=== PATIENT | female | born 1965 | race American Indian/Alaskan Native ===

== ENCOUNTER 2017-05-27 20:08 | Observation (INO) | payer BC ==
[2017-05-27 22:06] LABS: ALB/GLOB RATIO 1.4 (1.1-1.8); ALBUMIN 4.1 g/dL (3.0-4.8); ALT/SGPT 34 U/L (7-56); AST/SGOT 27 U/L (14-36); BLOOD UREA NITROGEN 12 mg/dL (7-21); CALCIUM 9.5 mg/dL (8.4-10.5); GFR AFRICAN-AMERICAN > 60; GFR NON-AFRICAN AMERICAN > 60
[2017-05-27 22:09] LABS: HEMOGLOBIN 12.9 g/dL (12.0-16.0); MEAN CELL VOLUME 85.7 fl (80.0-105.0); MEAN CORPUSCULAR HEMOGLOBIN 29.3 pg (25.0-35.0); MEAN CORPUSCULAR HGB CONC 34.1 g/dl (31.0-37.0); MEAN PLATELET VOLUME 10.1 fl (7.0-11.0); RBC 4.41 10^6/uL (3.5-6.1); RED CELL DISTRIBUTION WIDTH 13.3 % (11.5-14.5); WHITE BLOOD COUNT 5.9 10^3/ul (4.5-11.0)
[2017-05-27 22:18] LABS: B-TYPE NATRIURETIC PEPTIDE 70.6 pg/mL (0-450); TROPONIN I < 0.01 ng/mL
[2017-05-27 22:25] LABS: INR 1.14 (0.93-1.08); PARTIAL THROMBOPLASTIN TIME 30.2 Seconds (25.1-36.5)
--- NOTE | 2017-05-27 22:27 | ED PDOC ---
Arrival/HPI - General Chief Complaint: High Blood Pressure Time Seen by Provider: 05/27/17 20:35 Historian: Patient - History of Present Illness Narrative History of Present Illness (Text): 05/27/17 21:05 Kaylene James is a 51 year old female, whose past medical history includes hypertension and diabetes, who presents to the emergency department complaining of headache discomfort tonight. Patient also reports chest discomfort with some occasional vague shortness of breath, and intermittent ankle swelling. Patient denies any fever, chills, back pain, nausea, vomiting, or any other complaints. Symptom Onset: Gradual Symptom Course: Unchanged Activities at Onset: Light Context: Home Past Medical History - Provider Review Nursing Documentation Reviewed: Yes - Infectious Disease Hx of Infectious Diseases: None - Cardiac Hx Cardiac Disorders: No Hx Hypertension: Yes - Pulmonary Hx Respiratory Disorders: No - Neurological Hx Neurological Disorder: No - HEENT Hx HEENT Disorder: No - Renal Hx Renal Disorder: No - Endocrine/Metabolic Hx Endocrine Disorders: Yes Hx Diabetes Mellitus Type 2: Yes ("pre-diabetes) - Hematological/Oncological Hx Blood Disorders: No - Integumentary Hx Dermatological Disorder: No - Musculoskeletal/Rheumatological Hx Musculoskeletal Disorders: No - Gastrointestinal Hx Gastrointestinal Disorders: No - Genitourinary/Gynecological Hx Genitourinary Disorders: No - Psychiatric Hx Psychophysiologic Disorder: No Hx Substance Use: No - Surgical History Hx Orthopedic Surgery: Yes (right knee) - Anesthesia Hx Anesthesia: Yes Hx Anesthesia Reactions: No Hx Malignant Hyperthermia: No Family/Social History - Physician Review Nursing Documentation Reviewed: Yes Family/Social History: Unknown Family HX Smoking Status: Never Smoked Hx Alcohol Use: Yes Hx Substance Use: No Allergies/Home Meds Allergies/Adverse Reactions: Allergies No Known Allergies Allergy (Verified 05/27/17 20:23) Home Medications: Home Meds Medication Instructions Recorded Confirmed Lisinopril [Zestril] 10 mg PO DAILY 05/27/17 05/27/17 Review of Systems - Physician Review All systems were reviewed & negative as marked: Yes - Review of Systems Constitutional: Normal. absent: Fevers Eyes: Normal ENT: Normal Respiratory: SOB Cardiovascular: Chest Pain Gastrointestinal: Normal. absent: Abdominal Pain, Constipation, Diarrhea, Nausea, Vomiting Genitourinary Female: Normal. absent: Dysuria, Frequency, Hematuria, Urine Output Changes Musculoskeletal: Other (+ankle swelling). absent: Back Pain, Neck Pain Skin: Normal. absent: Rash Neurological: Headache. absent: Dizziness Endocrine: Normal Hemo/Lymphatic: Normal Psychiatric: Normal Physical Exam Vital Signs Reviewed: Yes Vital Signs Temp Pulse Resp BP Pulse Ox 05/28/17 00:44 69 18 142/83 96 05/27/17 21:54 70 18 144/80 99 05/27/17 20:24 98.5 F 68 16 142/91 H 97 Temperature: Afebrile Blood Pressure: Normal Pulse: Regular Respiratory Rate: Normal Appearance: Positive for: Well-Appearing, Non-Toxic, Comfortable Pain Distress: None Mental Status: Positive for: Alert and Oriented X 3 - Systems Exam Head: Present: Atraumatic, Normocephalic Pupils: Present: PERRL Extroacular Muscles: Present: EOMI Conjunctiva: Present: Normal Ears: Present: Normal, NORMAL TM, Normal Canal. No: Erythema, TM Bulging, Fluid , TM Perf Mouth: Present: Moist Mucous Membranes Pharnyx: Present: Normal. No: ERYTHEMA, EXUDATE, TONSILS ENLARGED, Peritonsilar Swelling, Uvular Deviation, Muffled/Hoarse Voice, Strider, Soft Palate/Uvular Edema Nose (External): Present: Atraumatic Nose (Internal): Present: Normal Inspection Neck: Present: Normal Range of Motion. No: Meningeal Signs, MIDLINE TENDERNESS , Paraspinal Tenderness Respiratory/Chest: Present: Clear to Auscultation, Good Air Exchange. No: Respiratory Distress, Accessory Muscle Use Cardiovascular: Present: Regular Rate and Rhythm, Normal S1, S2. No: Murmurs Abdomen: No: Tenderness, Distention, Peritoneal Signs Back: Present: Normal Inspection. No: CVA Tenderness, Midline Tenderness, Paraspinal Tenderness Upper Extremity: Present: Normal Inspection. No: Cyanosis, Edema Lower Extremity: Present: Normal Inspection, NORMAL PULSES, Normal ROM, Neurovascularly Intact, Capillary Refill < 2 s. No: Edema, CALF TENDERNESS, Cyanosis, Tenderness, Swelling, Erythema, Deformity, Temperature Abnormalties Neurological: Present: GCS=15, CN II-XII Intact, Speech Normal, Motor Func Grossly Intact, Normal Sensory Function, Normal Cerebellar Funct, Memory Normal Skin: Present: Warm, Dry, Normal Color. No: Rashes Psychiatric: Present: Alert, Oriented x 3, Normal Insight, Normal Concentration Medical Decision Making ED Course and Treatment: 05/27/17 21:05 Impression: 51 year old female complaining of headache discomfort, chest discomfort, occasional vague shortness of breath, and ankle swelling. Plan: -- CT Head w/o contrast -- EKG -- Chest X-Ray -- Labs, BNP, cardiac enzymes -- Reassess and disposition Progress Notes: Reviewed EKG, NSR at [address] bpm[address] Non-specific ST/T wave changes. 05/28/17 00:09 Reviewed radiology, Chest X-Ray reviewed, shows no acute processes. CT Head shows: Brain: The white-betancourt differentiation is preserved demonstrating no acute territorial type infarct. No acute intracranial hemorrhage is seen. There is calcification of the right globus pallidus, which is likely incidental. Midline shift: There is no midline shift. Ventricles: No ventriculomegaly. Bones/joints: The calvarium demonstrates no evidence for a depressed fracture. Soft tissues: No acute abnormality. Vasculature: Minimal atherosclerotic changes are visualized. Sinuses: Unremarkable as visualized. No acute sinusitis. Mastoid air cells: No mastoid effusion. IMPRESSION: 1. No acute intracranial abnormality. 05/28/17 00:[address] Shearer, who is aware and agrees with plan. Accepts pt in to his service. Pt will go to Telemetry observation for chest pain and headache. vice president quality assurance notified. 05/28/17 00:43 Case discussed with manager of medical global position system technician, who is aware and agrees with plan. - Lab Interpretations Lab Results: 05/27/17 21:45 05/27/17 21:45 Lab Results 05/27/17 21:45: WBC 5.9, RBC 4.41, Hgb 12.9, Hct 37.8, MCV 85.7, MCH 29.3, MCHC 34.1, RDW 13.3, Plt Count 296, MPV 10.1 05/27/17 21:45: Sodium 139, Potassium 3.9, Chloride 102, Carbon Dioxide 31, Anion Gap 11, BUN 12, Creatinine 0.8, Est GFR ( Amer) > 60, Est GFR (Non- Af Amer) > 60, Random Glucose 86, Calcium 9.5, Total Bilirubin 0.5, AST 27, ALT 34, Alkaline Phosphatase 53, Lactate Dehydrogenase 582, Total Creatine Kinase 283 H, CK-MB (CK-2) 0.9, CK-MB (CK-2) % Cancelled, Troponin I < 0.01, NT-Pro-B Natriuret Pep 70.6, Total Protein 7.1, Albumin 4.1, Globulin 3.0, Albumin/ Globulin Ratio 1.4 05/27/17 21:45: PT 13.0 H, INR 1.14 H, APTT 30.2 I have reviewed the lab results: Yes - RAD Interpretation Radiology Orders: 05/27/17 21:07 CHEST ONE VIEW [RAD] Stat 05/27/17 21:08 HEAD W/O CONTRAST [CT] Stat Ultrasound Manager: ED Physician, Radiologist - EKG Interpretation Interpreted by ED Physician: Yes Type: 12 lead EKG - Medication Orders Current Medication Orders: Aspirin (Aspirin) 325 mg PO ONCE STA Stop: 05/28/17 00:40 Clopidogrel Bisulfate (Plavix) 75 mg PO STAT STA Stop: 05/28/17 00:40 Metoprolol Tartrate (Lopressor) 25 mg PO ONCE STA Stop: 05/28/17 00:44 - Scribe Statement The provider has reviewed the documentation as recorded by the Leighann Rosa Provider Scribe Attestation: All medical record entries made by the Scribe were at my direction and personally dictated by me. I have reviewed the chart and agree that the record accurately reflects my personal performance of the history, physical exam, medical decision making, and the department course for this patient. I have also personally directed, reviewed, and agree with the discharge instructions and disposition. . Disposition/Present on Arrival - Present on Arrival Any Indicators Present on Arrival: No History of DVT/PE: No History of Uncontrolled Diabetes: No Urinary Catheter: No History of Decub. Ulcer: No History Surgical Site Infection Following: None - Disposition Have Diagnosis and Disposition been Completed?: Yes Diagnosis: Chest pain Disposition: HOSPITALIZED Disposition Time: 00:45 Patient Plan: Observation Condition: GOOD Discharge Instructions (ExitCare): Chest Pain (ED) Referrals: Luli Connolly MD [Primary Care Provider] - Follow up with primary Forms: Qik (Bur[place]ian)
[2017-05-27 22:42] LABS: CK-MB 0.9 ng/mL (0.0-3.6)
--- NOTE | 2017-05-27 23:43 | CT ---
EXAM: CT Head Without Intravenous Contrast EXAM DATE/TIME: 05/27/2017 9:08 PM CLINICAL HISTORY: The patient age is 51 years old and is female; Pain; Headache; Headache not specified Facility exam id and description: Ct heads head w/o contrast TECHNIQUE: Axial computed tomography images of the head/brain without intravenous contrast. All CT scans at this facility use one or more dose reduction techniques, viz.: automated exposure control; ma/kV adjustment per patient size (including targeted exams where dose is matched to indication; i.e. head); or iterative reconstruction technique. Coronal and sagittal reformatted images were created and reviewed. COMPARISON: No relevant prior studies available. FINDINGS: Brain: The white-betancourt differentiation is preserved demonstrating no acute territorial type infarct. No acute intracranial hemorrhage is seen. There is calcification of the right globus pallidus, which is likely incidental. Midline shift: There is no midline shift. Ventricles: No ventriculomegaly. Bones/joints: The calvarium demonstrates no evidence for a depressed fracture. Soft tissues: No acute abnormality. Vasculature: Minimal atherosclerotic changes are visualized. Sinuses: Unremarkable as visualized. No acute sinusitis. Mastoid air cells: No mastoid effusion. IMPRESSION: 1. No acute intracranial abnormality.
--- NOTE | 2017-05-28 02:04 | CP.PCM.HP ---
<Georgette Ray - Last Filed: 05/29/17 04:16> History of Present Illness - History of Present Illness History of Present Illness: Georgette Ray, PGY1, H&P for Dr Shearer: CC: exertional SOB and headache 51 year old female, with PMH HTN, presents for exertional sob and headache for past few days. She reports the headache as frontal, achy, rates it as 4/10, denies radiation, denies associated vision changes, dizziness, hearing changes, syncope. Pt states that she ran out of her home antiHTN med Lisinopril for a week. At home, she was worried as her BP was in 160s/90s and therefore decided to come to ED. Pt states that she should have gone to Dr Connolly (her PMD), but instead to come to ED because she was getting anxious. She reports her SOB related to going down flights of stairs and even walking recently. She was supposed to go see Dr Martinez a year ago, but did not see him due to scheduling issues. No prior stress test or cardiac cath. This afternoon, pt states that she started thinking about everything and became anxious about it. Denies focal weakness, dizziness, syncope, n/v/d, abdominal pain, constipation, urinary symptoms. Pt reports mild leg swelling. She said that she sometimes takes Lasix intermittently (given by her PMD) for leg swelling. Pt also reports mild chest discomfort, that occured transiently while she was anxious during the afternoon. In ED, BP 142/91. trop negx1. BNP 70.6. ASA 325, plavix 75, lopressor 25 mg PO given in ED. Head CT neg. CXR neg for infiltrates. 12 point ROS obtained and neg, except as per HPI. PMD: Mohsen PMH: HTN PSH: right knee surgery, right shoulder surgery (03/2017) All: NKA FH: Mother, HTN SH: Works as police radio dispatcher in . Drinks red wine twice a week. Denies tobacco/ illicit drug use. Present on Admission - Present on Admission Any Indicators Present on Admission: No History of DVT/PE: No History of Uncontrolled Diabetes: No Urinary Catheter: No Decubitus Ulcer Present: No Review of Systems - Review of Systems All systems: reviewed and no additional remarkable complaints except Review of Systems: as per HPI Past Patient History - Infectious Disease Hx of Infectious Diseases: None - Past Social History Smoking Status: Never Smoked - CARDIAC Hx Cardiac Disorders: No Hx Hypertension: Yes - PULMONARY Hx Respiratory Disorders: No - NEUROLOGICAL Hx Neurological Disorder: No - HEENT Hx HEENT Problems: No - RENAL Hx Chronic Kidney Disease: No - ENDOCRINE/METABOLIC Hx Endocrine Disorders: Yes Hx Diabetes Mellitus Type 2: Yes ("pre-diabetes) - HEMATOLOGICAL/ONCOLOGICAL Hx Blood Disorders: No - INTEGUMENTARY Hx Dermatological Problems: No - MUSCULOSKELETAL/RHEUMATOLOGICAL Hx Musculoskeletal Disorders: No - GASTROINTESTINAL Hx Gastrointestinal Disorders: No - GENITOURINARY/GYNECOLOGICAL Hx Genitourinary Disorders: No - PSYCHIATRIC Hx Psychophysiologic Disorder: No Hx Substance Use: No - SURGICAL HISTORY Hx Orthopedic Surgery: Yes (right knee) - ANESTHESIA Hx Anesthesia: Yes Hx Anesthesia Reactions: No Hx Malignant Hyperthermia: No Meds Home Medications: Home Medication List Medication Instructions Recorded Confirmed Type Aspirin [Ecotrin] 81 mg PO DAILY tabec 05/28/17 Rx Atorvastatin [Lipitor] 40 mg PO DAILY #30 tab 05/28/17 Rx Lisinopril/Hydrochlorothiazide 1 each PO DAILY #30 tablet 05/28/17 Rx [Zestoretic 20-12.5 mg Tablet] Allergies/Adverse Reactions: Allergies Allergy/AdvReac Type Severity Reaction Status Date / Time No Known Allergies Allergy Verified 05/27/17 20:23 Physical Exam - Constitutional Appears: Non-toxic, No Acute Distress - Head Exam Head Exam: ATRAUMATIC, NORMOCEPHALIC - Eye Exam Eye Exam: EOMI, PERRL. absent: Conjunctival injection, Nystagmus, Scleral icterus Pupil Exam: NORMAL ACCOMODATION, PERRL. absent: Fixed, Irregular, Miosis, Mydriatic, Unequal - ENT Exam ENT Exam: Mucous Membranes Moist - Neck Exam Neck exam: Positive for: Full Rom - Respiratory Exam Respiratory Exam: Clear to Auscultation Bilateral, NORMAL BREATHING PATTERN. absent: Accessory Muscle Use, Chest Wall Tenderness, Rales, Rhonchi, Wheezes, Stridor - Cardiovascular Exam Cardiovascular Exam: RRR, +S1, +S2. absent: Systolic Murmur - GI/Abdominal Exam GI & Abdominal Exam: Normal Bowel Sounds, Soft. absent: Distended, Firm, Guarding, Mass, Organomegaly, Rebound, Rigid, Tenderness - Extremities Exam Extremities exam: Positive for: normal inspection. Negative for: calf tenderness, pedal edema - Back Exam Back exam: NORMAL INSPECTION. absent: CVA tenderness (L), CVA tenderness (R) - Neurological Exam Neurological exam: Alert, Oriented x3 - Psychiatric Exam Psychiatric exam: Normal Affect, Normal Mood - Skin Skin Exam: Dry, Normal Color, Warm Results - Vital Signs Recent Vital Signs: Last Vital Signs Temp 98.5 F 05/27/17 20:24 Pulse 68 05/28/17 01:05 Resp 18 05/28/17 00:44 BP 142/83 05/28/17 01:05 Pulse Ox 96 05/28/17 00:44 - Labs Result Diagrams: 05/28/17 07:45 05/28/17 07:45 Labs: Laboratory Results - last 24 hr 05/27/17 05/27/17 05/27/17 21:45 21:45 21:45 WBC 5.9 RBC 4.41 Hgb 12.9 Hct 37.8 MCV 85.7 MCH 29.3 MCHC 34.1 RDW 13.3 Plt Count 296 MPV 10.1 PT 13.0 H INR 1.14 H APTT 30.2 Sodium 139 Potassium 3.9 Chloride 102 Carbon Dioxide 31 Anion Gap 11 BUN 12 Creatinine 0.8 Est GFR ( Amer) > 60 Est GFR (Non-Af Amer) > 60 Random Glucose 86 Calcium 9.5 Total Bilirubin 0.5 AST 27 ALT 34 Alkaline Phosphatase 53 Lactate Dehydrogenase 582 Total Creatine Kinase 283 H CK-MB (CK-2) 0.9 CK-MB (CK-2) % Cancelled Troponin I < 0.01 NT-Pro-B Natriuret Pep 70.6 Total Protein 7.1 Albumin 4.1 Globulin 3.0 Albumin/Globulin Ratio 1.4 Assessment & Plan - Assessment and Plan (Free Text) Assessment: 51 year old female with PMH HTN, presents for exertional sob, headache: Exertional SOB: likely 2/2 anxiety from noncompliance with antiHTN meds, less likely CHF - BNP normal - Echo - Cardio consult. F/u recs. - d dimer, US LE. Headache likely 2/2 anxiety vs HTN - BP 140s/90s - home lisinopril - start metoprolol - monitor - Head CT neg Transient mild chest discomfort: r/o ACS - initial trop neg. EKG normal - Serial trops. EKG in AM - TSH, lipid panel, Hemoglobin A1C - Home Lisinopril 10 mg - Start metoprolol 25 daily. holding parameters given. - CXR neg for infiltrates. no cardiomegaly. official read pending. PPX: Protonix, SCDs Diet: HHD Discussed with Dr Shearer. - Date & Time Date: 05/28/17 Time: 02:11 <Phill Shearer U - Last Filed: 06/01/17 17:31> Results - Vital Signs Recent Vital Signs: Last Vital Signs Temp 98.2 F 05/28/17 12:00 Pulse 67 05/28/17 14:00 Resp 18 05/28/17 12:00 BP 135/79 05/28/17 12:00 Pulse Ox 97 05/28/17 09:35 - Labs Result Diagrams: 05/28/17 07:45 05/28/17 07:45 Attending/Attestation - Attestation I have personally seen and examined this patient.: Yes I have fully participated in the care of the patient.: Yes I have reviewed all pertinent clinical information: Yes Notes (Text): Please see/read my dictated notes.
[2017-05-28 03:13] VITALS: BMI 130718.1
[2017-05-28 03:17] LABS: HDL CHOLESTEROL 41 mg/dL (29-60)
[2017-05-28 03:30] LABS: LDL CHOLESTEROL 127 mg/dL (0-129)
[2017-05-28 03:32] LABS: TROPONIN I < 0.01 ng/mL
[2017-05-28] MEDS ORDERED: Pantoprazole 20 mg EC Tab PO SCH (06:00)
[2017-05-28 06:24] VITALS: RESP 18; O2SAT 97
[2017-05-28 07:55] LABS: BASO # 0.01 K/mm3 (0.0-2.0); BASO % 0.2 % (0.0-3.0); EOS # 0.2 (0.0-0.7); EOS % 3.6 % (1.5-5.0); GRAN # 1.95 (1.4-6.5); GRAN % 38.6 % (50.0-68.0); HEMOGLOBIN 12.8 g/dL (12.0-16.0); LYMPH # 2.6 (1.2-3.4); LYMPH % 51.1 % (22.0-35.0); MEAN CELL VOLUME 84.9 fl (80.0-105.0); MEAN CORPUSCULAR HEMOGLOBIN 28.8 pg (25.0-35.0); MONO # 0.3 (0.1-0.6); MONO % 6.5 % (1.0-6.0); RBC 4.44 10^6/uL (3.5-6.1); RED CELL DISTRIBUTION WIDTH 13.4 % (11.5-14.5); WHITE BLOOD COUNT 5.1 10^3/ul (4.5-11.0)
[2017-05-28 08:12] LABS: ALB/GLOB RATIO 1.4 (1.1-1.8); ALBUMIN 3.7 g/dL (3.0-4.8); ALT/SGPT 29 U/L (7-56); AST/SGOT 20 U/L (14-36); BILIRUBIN,DIRECT 0.2 mg/dL (0.0-0.4); BLOOD UREA NITROGEN 10 mg/dL (7-21); CALCIUM 9.3 mg/dL (8.4-10.5); GFR AFRICAN-AMERICAN > 60; GFR NON-AFRICAN AMERICAN > 60
[2017-05-28 08:20] LABS: TROPONIN I < 0.01 ng/mL
--- NOTE | 2017-05-28 09:33 | RAD ---
PROCEDURE: CHEST RADIOGRAPH, 1 VIEW HISTORY: Chest pain COMPARISON: None available. FINDINGS: LUNGS: The lungs are well inflated and clear. PLEURA: No pneumothorax or pleural fluid seen. CARDIOVASCULAR: Normal. OSSEOUS STRUCTURES: Within normal limits for the patient's age. VISUALIZED UPPER ABDOMEN: Normal. OTHER FINDINGS: None. IMPRESSION: No active pulmonary disease.
[2017-05-28] MEDS ORDERED: Enoxaparin 40 mg Syringe SC SCH (10:00)
[2017-05-28] MEDS ORDERED: Iohexol 350 MG/100 ML VIAL ONE (11:04)
[2017-05-28 12:00] VITALS: BP 135/79; TEMP 98.2
--- NOTE | 2017-05-28 12:53 | CT ---
PROCEDURE: CT Chest with contrast (Pulmonary Angiogram) HISTORY: past hx pe COMPARISON: None available. TECHNIQUE: Axial computed tomography images were obtained of the chest in the pulmonary arterial phase of enhancement. Coronal and sagittal reformatted images were created and reviewed. Intravenous contrast dose: Omnipaque 350, 100 cc Radiation dose: Total exam DLP = 494.54 mGy-cm. This CT exam was performed using one or more of the following dose reduction techniques: Automated exposure control, adjustment of the mA and/or kV according to patient size, and/or use of iterative reconstruction technique. FINDINGS: PULMONARY ARTERIES: No definite pulmonary artery embolism identified. Prominence of the main pulmonary artery up to 3.3 cm is appreciated. Clinically correlate for potential pulmonary artery hypertension. AORTA: No acute findings. No thoracic aortic aneurysm. LUNGS: Unremarkable. No nodule, mass or pulmonary consolidation. PLEURAL SPACES: Unremarkable. No effusion or pneuomothorax. HEART: Borderline cardiomegaly. No pericardial effusion identified. The thoracic inlet appears unremarkable. There is a tiny hiatal hernia. LYMPH NODES: No lymphadenopathy. BONES, CHEST WALL: Unremarkable. No fracture or destructive lesion OTHER FINDINGS: Unremarkable. IMPRESSION: 1. No CT evidence of pulmonary embolus as discussed above. 2. Borderline cardiomegaly. The main pulmonary artery appears somewhat prominent measuring up to 3.3 cm greatest dimension. Clinically correlate for potential pulmonary artery hypertension. 3. No acute infiltrate, pleural or pericardial effusion or pneumothorax identified. Incidental tiny hiatal hernia noted.
--- NOTE | 2017-05-28 13:20 | CON ---
DATE: 05/28/2017 CARDIOLOGY CONSULTATION HISTORY OF PRESENT ILLNESS: The patient is a 51-year-old woman who presents with focal chest discomfort while exerting herself. The symptoms were pleuritic in nature. PAST MEDICAL HISTORY: Also includes hypertension, borderline diabetes mellitus. She does complain of intermittent exertional dyspnea recently. No previous cardiac history is noted. There is no family history of CAD. The patient does not smoke. 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 REVIEW OF SYSTEMS: A 14-point review of systems was reviewed in detail. The patient does experience occasional dyspnea. PHYSICAL EXAMINATION VITAL SIGNS: Blood pressure is 131/88, the heart rate is in the 80s. NECK: Negative JVD. LUNGS: Without rales. HEART: Reveals S1, S2. EXTREMITIES: Without edema. EKG shows normal sinus rhythm with nonspecific ST flattening. LABORATORY DATA: Hemoglobin is 12.8. Chemistries: Troponins are negative x3. IMPRESSION: 1. Atypical chest pain. 2. Hypertension. 3. Intermittent dyspnea. 4. Hypercholesterolemia. PLAN: Given these findings, there is no evidence for acute coronary syndrome. The patient is ambulating without symptoms. The patient can be discharged from a cardiac perspective. We will arrange for an outpatient stress test given her cardiac risk factors. Zachary Alejo MD
--- NOTE | 2017-05-28 14:25 | CARD ---
APPROVED REPORT EKG Measurement Heart [id number] <Conclusion> Normal sinus rhythm Nonspecific T wave abnormality Abnormal ECG
--- NOTE | 2017-05-28 14:40 | CARD ---
APPROVED REPORT EKG Measurement Heart [id number] <Conclusion> Normal sinus rhythm Nonspecific ST and T wave abnormality Abnormal ECG
[2017-05-28 16:35] VITALS: PULSE 67
--- NOTE | 2017-05-28 22:06 | HP ---
DATE OF EXAM: 05/28/2017 HISTORY OF PRESENT ILLNESS: The patient is a 51-year-old female, who presented to [facility] with complaints of elevated blood pressure, headache, lightheadedness, shortness of breath at rest and dyspnea on exertion and also complaining of leg swelling, exertional shortness of breath and shortness of breath at rest, headache, chest heaviness and lightheadedness. The patient also has been noticing leg swelling. For further details of the patient's medical history and details, please review the history and physical examination by the medical parasitologist and the ER physician. The patient was examined in room 273, bed 2. The patient's diagnostic data reviewed. IMPRESSION: 1. Chest pain with shortness of breath and dyspnea on exertion, etiology undetermined. 2. Uncontrolled hypertension. 3. Lightheadedness, etiology undetermined. 4. Headache. 5. Questionable angina. 6. Morbid obesity. 7. Questionable uncontrolled hypertension. 8. History of right lower extremity deep venous thrombosis post right knee meniscal surgery. 9. History of prediabetes. 10. History of right shoulder surgery and right knee surgery. 11. Elevated D-dimer, etiology undetermined. 12. Hypercholesterolemia with elevated LDL. PLAN: At this time, the patient is to be admitted to Telemetry. The patient has been ordered repeat labs. The patient has been ordered serial cardiac enzymes. Cardiology consultation has been ordered. The patient is started on aspirin 81 mg p.o. daily, Lasix 20 mg IV push daily, Lipitor 40 mg daily, Lopressor 25 mg daily, Lovenox 40 mg subcutaneously daily. The patient received Plavix 75 in the emergency room. The patient is on Protonix 20 mg daily. Venous Doppler of the lower extremity ordered. CT angio has been ordered. Repeat EKG ordered. The patient has been ordered out of bed. At present, the patient will be continued on above therapeutic intervention. The patient will be considered for discharge upon clearance by Cardiology and upon completion of all the diagnostic therapeutic intervention. The patient explained about all details of her medical condition, need for diagnostic therapeutic intervention and clinical condition explained to the patient at length and all questions concerned answered. ADDENDUM: For detailed history and physical examination, refer to the history and physical examination by the medical parasitologist. Dictated and electronically signed, not read. Phill MD Janki [facility] # [id number]
== END 2017-05-28 17:00 | disposition home or self-care (01) ==
LOC: ED 20:08 → ERH 05-28 00:46 → 2RSO 05-28 02:30
PROVIDERS: ADMIT Internal Medicine; ATTEND Internal Medicine
DX: R07.89 Other chest pain (principal); R06.02 Shortness of breath; R51 Headache; R06.09 Other forms of dyspnea; R42 Dizziness and giddiness; I10 Essential (primary) hypertension; R73.03 Prediabetes; F41.9 Anxiety disorder, unspecified; E78.00 Pure hypercholesterolemia, unspecified; E66.01 Morbid (severe) obesity due to excess calories; Z86.718 Personal history of other venous thrombosis and embolism; Z79.82 Long term (current) use of aspirin; Z91.14 Patient's other noncompliance with medication regimen
CPT/HCPCS: 36415; 70450; 71045; 71275; 80053; 80061; 82248; 82306; 82550; 82553; 82607; 83036; 83615; 83735; 83880; 84443; 84484; 84702; 85025; 85027; 85378; 85610; 85730; 93005; 93306; 93970; 99285; G0378; J1650; J1940; Q9967